=== PATIENT | male | born 1935 | race Caucasian/White ===

== ENCOUNTER 2017-03-28 14:19 | Inpatient (IN) | payer MEDICARE, BC, MEDICAID ==
[2017-03-28 15:20] LABS: Hematocrit 31 % (42-52); Hemoglobin 10.1 g/dl (14.0-18.0); Mean Corpuscular HGB Conc 33 g/dl (31-36); Mean Corpuscular Hemoglobin 28 pg (27-31); Mean Corpuscular Volume 85 fL (80-94); Mean Platelet Volume 7 um3 (7.4-10.4); Red Blood Count 3.64 10^6/ul (4.0-5.4); Red Cell Distribution Width 17 % (10.5-15); White Blood Count 11.6 10^3/ul (3.5-10.8)
--- NOTE | 2017-03-28 15:32 | RAD ---
INDICATION: Weakness. COMPARISON: There are no prior studies available for comparison. TECHNIQUE: A portable view of the chest was obtained. FINDINGS: Cardiac and mediastinal contours appear to be within normal limits. There is a dual-chamber transvenous pacemaker present. The lungs are clear. No pleural effusion is seen. IMPRESSION: NO EVIDENCE FOR ACUTE FINDING.
[2017-03-28 15:36] LABS: BUN/Creatinine Ratio 41.4 (8-20); Calcium 9.6 mg/dL (8.6-10.3); EGFR African American 38.1 (>60); EGFR Non-African American 29.6 (>60); Globulin 4.9 g/dL (2-4); Potassium 5.4 mmol/L (3.5-5.0); Total Bilirubin 0.4 mg/dL (0.2-1.0); Total Protein 7.9 g/dL (6.4-8.9)
[2017-03-28 15:38] LABS: Troponin I 0.02 ng/mL (<0.04)
[2017-03-28] MEDS ORDERED: NS 0.9% 1000 ML* 1,000 ML IV ONE (15:42)
[2017-03-28 16:22] LABS: Urine Bacteria Absent (Absent); Urine Bilirubin Negative (Negative); Urine Glucose Negative (Negative); Urine Nitrite Negative (Negative)
[2017-03-28] MEDS ORDERED: Ciprofloxacin 400MG IVPREMIX(* 400 MG/200 ML BAG IVPB ONE (17:01)
[2017-03-28] MEDS ORDERED: Bisacodyl SUPP* 10 MG SUPP PR PRN (18:02)
[2017-03-28] MEDS ORDERED: Acetaminophen TAB* 325 MG PO PRN (18:02)
[2017-03-28] MEDS ORDERED: Nystatin CREAM* 30 GM TOPICAL PRN (18:02)
[2017-03-28] MEDS ORDERED: Dextrose 50% Syringe 50 ML* 25 GM/50 ML SYRINGE IV PUSH PRN (18:06)
[2017-03-28] MEDS ORDERED: NS 0.9% 1000 ML* 1,000 ML IV SCH (18:15)
[2017-03-28] MEDS ORDERED: Vancomycin per Pharmacy* NOTE FOLLOW UP PRN (18:31)
[2017-03-28] MEDS ORDERED: Vancomycin(*) 1,250 MG in NS 0.9% 250 ML* 250 ML IVPB ONE ×2 (18:45→22:15)
[2017-03-28] MEDS ORDERED: cefTRIAXone VIAL(*) 1,000 MG in NS 0.9% 50 ML* 50 ML IVPB SCH (19:30)
[2017-03-28] MEDS: Gabapentin CAP(*) 100 MG PO SCH (21:08)
[2017-03-28] MEDS: Heparin VIAL(*) 5000 UNITS/ML VIAL (FIVE THOUSAND) SUBCUT SCH (21:10)
[2017-03-28] MEDS: Carvedilol TAB* 25 MG PO SCH (21:10)
[2017-03-28] MEDS: Insulin LISPRO* 1 UNITS UNIT SUBCUT SCH (21:10)
[2017-03-28] MEDS: cefTRIAXone VIAL(*) 1,000 MG in NS 0.9% 50 ML* 50 ML IVPB SCH (22:11)
--- NOTE | 2017-03-28 23:43 | HP ---
ATTENDING PHYSICIAN ADDENDUM NOW INCLUDED ON THIS REPORT MEDICINE HISTORY AND PHYSICAL: DATE OF ADMISSION: 03/28/17 ATTENDING PHYSICIAN: Chata Perez MD * (dictated by Lobito Dawson NP). PRIMARY CARE PHYSICIAN: Romeo Shelton MD. CHIEF COMPLAINT: Back pain. HISTORY OF PRESENT ILLNESS: Mr. Mead is an 81-year-old gentleman with an extensive past medical history who reports waking up with back pain this morning that continued to worsen in severity and the patient arrived at [facility] for his scheduled hyperbaric oxygen therapy treatment. The patient has a history significant for peripheral vascular disease, osteomyelitis of the bilateral heels, and multiple pressure ulcers. Due to his pain and presentation, the patient was unable to have his treatment today or have his dressings changed by the wound clinic and he was sent to the ER for further evaluation. When I initially interviewed the patient, he was very sleepy, but did arouse with stimulation and repeated questions. The patient is a poor historian and was unable to really directly answer many of my questions. He does state that his back pain started this morning and denies any history of back pain like this. He did not receive any pain medications here in the ER, but states that his pain is now better. He denies any recent illness, fever, chills, chest pain , shortness of breath, abdominal pain, nausea, or vomiting. He denies any cramping or changes in appetite. He reports having a history of neuropathy, but denies any new changes or complaints and denies any increased drainage or pain at his wound sites. In the ER, the patient's Ruiz catheter was noted by the nursing staff to be full of sediment. His catheter had noted purulent drainage once removed. A new Ruiz catheter was placed by our ER staff and his urine sample that was reported to be foul smelling and cloudy was sent down for culture. Per the nursing notes, the patient also was observed having periods of apnea while sleeping. He does not have any known diagnosis of sleep apnea. In discussion with the patient's , the patient reports that he has been increasingly lethargic over the past couple of days and she was concerned for his safety when sitting out of bed in the wheelchair by himself. The patient's white blood cell count is mildly elevated at 11.6 and he does have a notable rise in his creatinine from his baseline which appears to be between 1.03 and 1.3. PAST MEDICAL HISTORY: Includes: 1. History of osteomyelitis in the left and right heels. 2. Pressure ulcers to the left and right heels. 3. Pressure ulcers to the left and right calves. 4. History of atherosclerotic heart disease. 5. Type 2 diabetes. 6. Heart failure. 7. Hypertension. 8. Peripheral vascular disease. 9. Polyneuropathy. 10. Paroxysmal atrial fibrillation. 11. BPH. 12. Anemia. PAST SURGICAL HISTORY: Includes: 1. Pacemaker and ICD insertion. 2. History of revascularization of the bilateral lower extremities. 3. Calcaneal debridement. HOME MEDICATIONS: 1. Amiodarone 200 mg daily. 2. Ibuprofen 200 mg q.4 hours p.r.n. 3. Arginaid nutritional supplement 1 pack b.i.d. 4. Aspirin 81 mg daily. 5. Dulcolax suppository 10 mg [place] daily p.r.n. 6. Calcium 500 mg daily. 7. Carvedilol 25 mg b.i.d. 8. Multivitamin 1 chew daily. 9. Fleet enema 1 enema per rectum q.a.m. p.r.n. 10. Probiotic 1 capsule daily. 11. Gabapentin 200 mg b.i.d. 12. Isosorbide mononitrate 60 mg daily. 13. Furosemide 40 mg daily. 14. NovoLog sliding scale with meals. 15. Magnesium oxide 400 mg daily. 16. Milk of magnesia 30 mL at bedtime p.r.n. 17. Lantus 36 units subcu daily. 18. Nystatin 1 application topical b.i.d. p.r.n. 19. Spironolactone 25 mg daily. 20. Acetaminophen 650 mg q.6 hours p.r.n. 21. Cholecalciferol 1000 units q.p.m. and 2000 units q.a.m. 22. Zinc 50 mg every other day. ALLERGIES: No known allergies. FAMILY HISTORY: Unobtainable at this time. The patient is unable to contribute. SOCIAL HISTORY: The patient reports a former tobacco and alcohol history, but denies current use. He denies any history or current use of illicit drugs. He does not work. He is retired. He lives at [facility]. His , Carmen, is his surrogate decision maker. He also has 3 children, Ramos, Nina, and Cleveland. REVIEW OF SYSTEMS: A 12-point review of systems was attempted. All pertinent positives and negatives I was able to obtain, are included in the HPI. PHYSICAL EXAMINATION GENERAL: Mr. Mead is an elderly male patient who is lying in the bed. He is initially drowsy, but is awakened with repeated verbal and tactile stimuli. VITAL SIGNS: Temperature 98.9, heart rate 76, respiratory rate 20, blood pressure 120/47, and O2 saturation is 99% on 2 L O2. HEENT: Head is atraumatic, normocephalic. Face is symmetrical. Pupils are equal, round, reactive to light. Sclerae are anicteric. Oral mucosa appears moist. There is no oropharyngeal erythema. NECK: Supple. No lymphadenopathy appreciated. RESPIRATORY: Lungs are clear to auscultation. No accessory muscle use noted. CARDIAC: S1, S2 heart sounds. Regular rate and rhythm. No murmurs, rubs, or gallops. ABDOMEN: Soft, nontender, nondistended. Bowel sounds present times all 4 quadrants. There is mild CVA tenderness bilaterally. MUSCULOSKELETAL: The patient appears to have full range of motion. SKIN: There are stage 2 pressure ulcers to the patient's sacrum and areas of excoriation. The patient also has multiple areas of open skin to the scrotum and groin area as well as to the tip of his penis. There are chronic wounds to the bilateral posterior calves and to the bilateral heels. The right posterior lower leg has a large amount of drainage. The left posterior leg also has a large amount of drainage. There are 2 heel wounds with drainage noted from the left foot. NEUROLOGIC: He moves all extremities. Sensation is intact to light touch to lower extremities, although it is somewhat decreased. PSYCH: The patient is alert and oriented x3. Once aroused, he does have slow responses, but they are appropriate. LABORATORY DATA AND DIAGNOSTIC STUDIES: CBC: WBC 11.6, hemoglobin 10.1, hematocrit 31, platelet count 232. INR 1.33. CMP: Sodium 129, potassium 5.4, chloride 100, carbon dioxide 21, BUN 89, creatinine 2.15, glucose 189, lactic acid 1.6, calcium 9.6. AST 18, ALT 16, alk phos 47. Troponin 0.02. Albumin 3.0. Urinalysis is significant for 2+ protein, 3+ blood, 3+ leukocyte esterase, 3+ rbc's. Chest x-ray shows no evidence for acute finding. Old medical records were reviewed. ASSESSMENT AND PLAN: Mr. Mead is an 81-year-old male who presents today with concern for sepsis as evidenced by altered mental status as well as urinary tract infection with potential pyelonephritis and acute kidney injury. We will admit him under inpatient status to the medicine floor. The plan is as follows: 1. Sepsis: The patient meets sepsis criteria currently with a qSOFA score of 1 or altered mentation and meets for sepsis by systemic inflammatory response syndrome criteria with elevated respiratory rate. The suspect thus far is urine as the patient did present with back pain that is concerning for developing pyelonephritis. Additionally, he does have a mildly elevated WBCs as well as increased creatinine indicating acute kidney injury and a UA that is concerning for leukocyte esterase and wbc's as well as blood. With the patient' s chronic Ruiz, he is at risk for urinary tract infections. The patient does have a urine culture on our record from a couple of weeks ago that shows MRSA growth in the urine. We will continue the patient on ceftriaxone and vancomycin and cover potential MRSA. Await urine cultures. We will also hydrate the patient and recheck labs in the morning to follow the WBC count as well as his renal function. The patient's Ruiz catheter has already been exchanged. 2. Acute on chronic kidney injury: The patient does seem to have some evidence of mild kidney disease or chronicity; however, his creatinine is about his usual baseline as seen in previous records. It is likely secondary to acute infection and perhaps some dehydration. We will give him IV fluids overnight and recheck his creatinine in the morning and we will continue to follow. We will hold the patient's home Lasix with spironolactone at this time. 3. Electrolyte abnormality: The patient does demonstrate some hyponatremia and hyperkalemia that is mild in nature. We will follow and continue to monitor to make sure that this is not trending in the wrong direction. The patient will receive fluids which I suspect will help the hyponatremia. This is likely secondary to hypovolemia. In terms of potassium, this may be secondary to the patient's acute on chronic renal failure, so we will continue to follow this as well. 4. Concern for apnea: The patient is able to maintain appropriate O2 sats on room air, but does demonstrate apnea and desaturation with sleep on mild amount of oxygen. We will obtain overnight pulse oximetry. The patient may benefit from an outpatient sleep study and most likely will benefit from a CPAP. 5. Chronic wounds and pressure ulcers: Wound consult has been placed. The patient was actually evaluated by the wound care team in the ER and wound orders have already been placed. We will treat these dressings per wound care consult. We will also order an air mattress and promote turning, positioning, and elevating the heels in order to prevent any further breakdown. 6. Atherosclerotic heart disease: Continue home aspirin, beta sarahi. Continue home Imdur. 7. History of paroxysmal atrial fibrillation: Continue amiodarone and carvedilol. 8. History of hypertension: Continue carvedilol. We will hold furosemide and spironolactone. 9. Heart failure: We will hold the patient's diuretics at this time with acute kidney injury and resume when medically appropriate. We will continue to trace him on I's and O's and daily weight to monitor his fluid status. Continue carvedilol. 10. Diabetes: The patient will be continued on his home Lantus dose and we will order lispro sliding scale insulin coverage for meals. 11. History of polyneuropathy: Continue gabapentin. 12. FEN: The patient will be ordered IV fluids. He will be maintained on a consistent carbohydrate diet. 13. DVT prophylaxis: The patient is at highest risk. We will give him subcu heparin as SCDs are contraindicated with his peripheral vascular disease, BOBBY italiae also contraindicated. 14. Code status: The patient is a DNR and the MOLST has been completed and signed by the patient. 15. Disposition: Admit to Medicine. Discharge to [facility] when medically stable. TIME SPENT: Time spent on this admission was approximately 65 minutes, more than half the time was spent [id number] with the patient obtaining history and physical, performing physical examination, and reviewing the plan of care. Plan of care was also reviewed with my attending, Dr. Chata Perez, who is in agreement. LOBITO DAWSON NP DATE OF ADMISSION: 03/28/17 ADDENDUM: Mr. Mead is an 81-year-old male with a history of bilateral chronic leg wounds, heart disease, cellulitis of the left heel, diabetes, CHF, hypertension , AND paroxysmal atrial fibrillation, who [facility] of wound infection. He actually presented in the ED with partially clogged Ruiz catheter. His urinalysis is markedly abnormal. He is going to be placed on broad-spectrum antibiotics. Wound Care is going to be following up in consultation. For further details of the patient's presentation and plan, please see history and physical dictated by Lobito Dawson NP, on 03/28/17 with which I agree. CHATA PEREZ MD CC: Romeo Shelton MD * [id number]/[facility] #: [id number]/CPS #: [id number] YAMIL
--- NOTE | 2017-03-29 00:25 | HP ---
HISTORY AND PHYSICAL:* DATE OF ADMISSION: 03/28/17 ADDENDUM: Mr. Mead is an 81-year-old male with a history of bilateral chronic leg wounds, heart disease, cellulitis of the left heel, diabetes, CHF, hypertension, AND paroxysmal atrial fibrillation, who [facility] of wound infection. He actually presented in the ED with partially clogged Ruiz catheter. His urinalysis is markedly abnormal. He is going to be placed on broad-spectrum antibiotics. Wound Care is going to be following up in consultation. For further details of the patient's presentation and plan, please see history and physical dictated by Jane Smith NP, on 03/28/17 with which I agree. [id number]/[facility] #: [id number] YAMIL
[2017-03-29] MEDS: Heparin VIAL(*) 5000 UNITS/ML VIAL (FIVE THOUSAND) SUBCUT SCH ×3 (05:33→21:49)
[2017-03-29 05:57] LABS: Hematocrit 29 % (42-52); Hemoglobin 9.5 g/dl (14.0-18.0); Mean Corpuscular HGB Conc 33 g/dl (31-36); Mean Corpuscular Hemoglobin 28 pg (27-31); Mean Corpuscular Volume 85 fL (80-94); Mean Platelet Volume 8 um3 (7.4-10.4); Red Blood Count 3.34 10^6/ul (4.0-5.4); Red Cell Distribution Width 17 % (10.5-15); White Blood Count 8.6 10^3/ul (3.5-10.8)
[2017-03-29 06:09] LABS: BUN/Creatinine Ratio 46.1 (8-20); EGFR African American 51.7 (>60); EGFR Non-African American 40.2 (>60); Magnesium 2.4 mg/dL (1.9-2.7); Potassium 4.8 mmol/L (3.5-5.0)
[2017-03-29] MEDS: Insulin GLARGINE(*) 1 UNITS UNIT SUBCUT SCH (10:03)
[2017-03-29] MEDS: Insulin LISPRO* 1 UNITS UNIT SUBCUT SCH ×3 (10:04→17:49)
[2017-03-29] MEDS: Cholecalciferol TAB* 1000 UNITS PO SCH (10:05)
[2017-03-29] MEDS: Lactobacillus Acidophilu (GG)* 1 CAP CAP PO SCH (10:05)
[2017-03-29] MEDS: Gabapentin CAP(*) 100 MG PO SCH ×2 (10:05→21:47)
[2017-03-29] MEDS: Aspirin EC Low Dose* 81 MG TAB.EC PO SCH (10:06)
[2017-03-29] MEDS: Amiodarone TAB* 200 MG PO SCH (10:06)
[2017-03-29] MEDS: Calcium Carbonate TAB* 1250 MG (CALCIUM 500 MG) PO SCH (10:06)
[2017-03-29] MEDS: Vancomycin(*) 750 MG in NS 0.9% 250 ML* 250 ML IVPB SCH ×2 (10:06→23:26)
[2017-03-29] MEDS: Isosorbide Mononitrate ER TAB* 60 MG PO SCH (10:06)
[2017-03-29] MEDS: Carvedilol TAB* 25 MG PO SCH ×2 (10:06→21:47)
--- NOTE | 2017-03-29 11:02 | PN ---
Subjective Date of Service: 03/29/17 Interval History: Mr. Mead is an 81 yo male patient who presented to the ED with transient back pain and concern for a developing pyelonephritis. He has a chronic indwelling manzo catheter that was cloudy with purulent urine and chronic diabetic ulcers to BLE. Mr. Mead is more alert and talkative this morning. When asked about the history of his wounds, he states that it was caused by "sugar." He also reports that he was walking around until "about 6 weeks ago when the doctor told me to stop walking." Patient unable to contribute any more information than this. He denies back or abd pain, n/v, CP, SOB, fever/chills. Family History: Unchanged from Admission Social History: Unchanged from Admission Past Medical History: Unchanged from Admission Objective Active Medications: Acetaminophen (Tylenol Tab*) 650 mg PO Q6H PRN PRN Reason: PAIN Amiodarone HCl (Cordarone Tab*) 200 mg PO DAILY [facility] Last Admin: 03/29/17 10:06 Dose: 200 mg Aspirin (Aspirin Ec Low Dose*) 81 mg PO DAILY [facility] Last Admin: 03/29/17 10:06 Dose: 81 mg Bisacodyl (Dulcolax Supp*) 10 mg [place] DAILY PRN PRN Reason: CONSTIPATION Calcium Carbonate (Calcium Carbonate Tab*) 1,250 mg PO DAILY [facility] Last Admin: 03/29/17 10:06 Dose: 1,250 mg Carvedilol (Coreg Tab*) 25 mg PO BID [facility] Last Admin: 03/29/17 10:06 Dose: 25 mg Cholecalciferol (Vitamin D Tab*) 1,000 units PO QPM [facility] Cholecalciferol (Vitamin D Tab*) 2,000 units PO DAILY [facility] Last Admin: 03/29/17 10:05 Dose: 2,000 units Dextrose (D50w Syringe 50 Ml*) 12.5 gm IV PUSH .FOR FS < 60 - SS PRN PRN Reason: FS < 60 Gabapentin (Neurontin Cap(*)) 200 mg PO BID [facility] Last Admin: 03/29/17 10:05 Dose: 200 mg Heparin Sodium (Porcine) (Heparin Vial(*)) 5,000 units SUBCUT Q8HR [facility] Last Admin: 03/29/17 05:33 Dose: 5,000 units Ceftriaxone Sodium 1,000 mg/ (Sodium Chloride) 50 mls @ 200 mls/hr IVPB 2200 [facility] Last Admin: 03/28/17 22:11 Dose: 200 mls/hr Vancomycin HCl 750 mg/ Sodium (Chloride) 250 mls @ 166.667 mls/hr IVPB Q12H [facility] Last Admin: 03/29/17 10:06 Dose: 166.667 mls/hr Sodium Chloride (Ns 0.9% 1000 Ml*) 1,000 mls @ 100 mls/hr IV PER RATE [facility] Stop: 03/29/17 21:14 Insulin Glargine (Lantus(*)) 36 units SUBCUT DAILY [facility] Last Admin: 03/29/17 10:03 Dose: 36 units Insulin Human Lispro (Humalog*) 0 units SUBCUT AC [facility] PRN Reason: Protocol Last Admin: 03/29/17 10:04 Dose: 4 units Isosorbide Mononitrate (Imdur Er Tab*) 60 mg PO DAILY [facility] Last Admin: 03/29/17 10:06 Dose: 60 mg Lactobacillus Rhamnosus (Culturelle*) 1 cap PO DAILY [facility] Last Admin: 03/29/17 10:05 Dose: 1 cap Nystatin (Nystatin Cream*) 1 applic TOPICAL BID PRN PRN Reason: RASH Pharmacy Consult (Vancomycin Per Pharmacy*) 1 note FOLLOW UP . PRN PRN Reason: PER PROTOCOL Pharmacy Profile Note (Vancomycin Trough Check) 1 note FOLLOW UP 1000 ONE Stop: 03/30/17 10:01 Vital Signs 03/28/17 03/28/17 03/28/17 17:30 18:00 18:15 Temperature 98.9 F Pulse Rate 75 78 76 Respiratory 19 21 20 Rate Blood Pressure 120/47 120/60 120/60 (mmHg) O2 Sat by Pulse 97 99 Oximetry 03/28/17 03/28/17 03/28/17 18:44 18:48 20:00 Temperature 97.4 F 97.4 F Pulse Rate 79 79 Respiratory 18 18 18 Rate Blood Pressure 136/68 136/68 (mmHg) O2 Sat by Pulse 100 100 97 Oximetry 03/28/17 03/28/17 03/28/17 21:08 22:00 23:08 Temperature Pulse Rate Respiratory 18 16 Rate Blood Pressure (mmHg) O2 Sat by Pulse 97 Oximetry 03/28/17 03/29/17 03/29/17 23:27 03:19 09:08 Temperature 97.5 F Pulse Rate 74 76 75 Respiratory 18 18 16 Rate Blood Pressure 119/59 133/61 126/72 (mmHg) O2 Sat by Pulse 99 99 99 Oximetry 03/29/17 10:05 Temperature Pulse Rate Respiratory 14 Rate Blood Pressure (mmHg) O2 Sat by Pulse Oximetry Oxygen Devices in Use Now: None Appearance: Older male patient, sitting up in bed, NAD Eyes: PERRLA Ears/Nose/Mouth/Throat: Mucous Membranes Moist Neck: NL Appearance and Movements; NL JVP Respiratory: Symmetrical Chest Expansion and Respiratory Effort, Clear to Auscultation Cardiovascular: NL Sounds; No Murmurs; No JVD, RRR Abdominal: NL Sounds; No Tenderness; No Distention Skin: - - Patient with open areas to buttocks, groin, scrotum, and penis. Chronic pressure ulcers to bilateral posterior legs and feet. Neurological: - - Alert, oriented to self, place. Poor insight and historian. Lines/Tubes/Other Access: Clean, Dry and Intact Peripheral IV Nutrition: Taking PO's Result Diagrams: 03/29/17 05:09 03/29/17 05:09 Additional Lab and Data: Lab Results 03/28/17 03/28/17 Range/Units 15:13 15:13 WBC 11.6 H (3.5-10.8) 10^3/ul RBC 3.64 L (4.0-5.4) 10^6/ul Hgb 10.1 L (14.0-18.0) g/dl Hct 31 L (42-52) % MCV 85 (80-94) fL MCH 28 (27-31) pg MCHC 33 (31-36) g/dl RDW 17 H (10.5-15) % Plt Count 232 (150-450) 10^3/ul MPV 7 L (7.4-10.4) um3 Neut % (Auto) 77.9 (38-83) % Lymph % (Auto) 7.5 L (25-47) % Evans % (Auto) 9.8 H (1-9) % Eos % (Auto) 4.1 (0-6) % Baso % (Auto) 0.7 (0-2) % Absolute Neuts (auto) 9.0 H (1.5-7.7) 10^3/ul Absolute Lymphs (auto) 0.9 L (1.0-4.8) 10^3/ul Absolute Monos (auto) 1.1 H (0-0.8) 10^3/ul Absolute Eos (auto) 0.5 (0-0.6) 10^3/ul Absolute Basos (auto) 0.1 (0-0.2) 10^3/ul Absolute Nucleated RBC 0 10^3/ul Nucleated RBC % 0 INR (Anticoag Therapy) 1.33 H (0.89-1.11) Assess/Plan/Problems-Billing Assessment: Mr. Mead is an 81 yo male patient with a PMH of chronic pressure ulcers, osteomyelitis, atherosclerotic heart dz, IDDM with polyneuropathy, PVD, PAF, HLD , HF, BPH and anemia who presented to the ED on 03/28/17 with concern for sepsis, leukocytosis and transient back pain that may be secondary to UTI with pyelonephritis, as well as NASRA. - Patient Problems (1) Sepsis Comment: Improved, leukocytosis resolving. Patient meets sepsis criteria with a qSOFA score of 1 for altered mentation and SIRS criteria of hypoxia and increased RR. Suspect urinary source. Previous urine culture with MRSA growth. Continue ceftriaxone and vancomycin until urine culture results. 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 Exchanged on admission (03/28/17) Previous urine cx with MRSA growth. Continue ceftriaxone and vancomycin, pending urine cx results. (3) Acute kidney injury Code(s): N17.9 - ACUTE KIDNEY FAILURE, UNSPECIFIED Comment: Improving. Suspect secondary to dehydration and acute infection. Will give one additional liter of IVF and recheck BMP tomorrow. 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 (4) Electrolyte abnormality Code(s): E87.8 - OTH DISORDERS OF ELECTROLYTE AND FLUID BALANCE, NEC Comment: Resolved. Hyponatremia, suspect secondary to hypovolemia (possibly from infection and overdiuresis). Hyperkalemia, suspect secondary to acute on chronic renal failure. (5) Multiple wounds Code(s): T07 - UNSPECIFIED MULTIPLE INJURIES Comment: Chronic lower extremity wounds Appreciate wound care consult Dressing changes per wound care Resume hyperbaric chamber treatment upon discharge. Continue skin precautions, air mattress. (6) Atherosclerotic heart disease Code(s): I25.10 - ATHSCL HEART DISEASE OF [place] CORONARY ARTERY W/O ANG PCTRS Comment: Continue ASA, carvedilol, isosorbide mononitrate. (7) IDDM (insulin dependent diabetes mellitus) Code(s): E11.9 - TYPE 2 DIABETES MELLITUS WITHOUT COMPLICATIONS; Z79.4 - PATROL INSPECTOR (CURRENT) USE OF INSULIN Comment: Elevated BG - check HgbA1c Continue home Lantus Lispro SSI coverage (8) HTN (hypertension) Code(s): I10 - ESSENTIAL (PRIMARY) HYPERTENSION Comment: Normotensive Continue home carvedilol with hold parameters. Hold furosemide and spironolactone. (9) History of heart failure Code(s): Z86.79 - PERSONAL HISTORY OF OTHER DISEASES OF THE CIRCULATORY SYSTEM Comment: Stable. Will hold furosemide and spironolactone with NASRA. Daily weights and I/O (10) Polyneuropathy Code(s): G62.9 - POLYNEUROPATHY, UNSPECIFIED Comment: Continue gabapentin. (11) PAF (paroxysmal atrial fibrillation) Code(s): I48.0 - PAROXYSMAL ATRIAL FIBRILLATION Comment: Continue amiodarone and carvedilol. (12) BPH (benign prostatic hyperplasia) Code(s): N40.0 - BENIGN PROSTATIC HYPERPLASIA WITHOUT LOWER URINRY TRACT SYMP Comment: With urinary retention Catheter changed 03/28/17 (13) DVT prophylaxis Code(s): HOZ7815 - Comment: SQ heparin Status and Disposition: Inpatient admission. Anticipate potential d/c to home tomorrow.
[2017-03-29] MEDS ORDERED: NS 0.9% 1000 ML* 1,000 ML IV SCH (11:15)
[2017-03-29] MEDS ORDERED: Cholecalciferol TAB* 1000 UNITS PO SCH (18:00)
[2017-03-29] MEDS: cefTRIAXone VIAL(*) 1,000 MG in NS 0.9% 50 ML* 50 ML IVPB SCH (21:49)
[2017-03-30] MEDS: Heparin VIAL(*) 5000 UNITS/ML VIAL (FIVE THOUSAND) SUBCUT SCH (05:28)
[2017-03-30 06:00] LABS: BUN/Creatinine Ratio 40.3 (8-20); Calcium 8.8 mg/dL (8.6-10.3); EGFR African American 75.5 (>60); EGFR Non-African American 58.7 (>60)
[2017-03-30] MEDS: Insulin LISPRO* 1 UNITS UNIT SUBCUT SCH ×2 (08:55→12:37)
[2017-03-30] MEDS: Amiodarone TAB* 200 MG PO SCH (08:57)
[2017-03-30] MEDS: Aspirin EC Low Dose* 81 MG TAB.EC PO SCH (08:57)
[2017-03-30] MEDS: Lactobacillus Acidophilu (GG)* 1 CAP CAP PO SCH (08:57)
[2017-03-30] MEDS: Gabapentin CAP(*) 100 MG PO SCH (08:57)
[2017-03-30] MEDS: Cholecalciferol TAB* 1000 UNITS PO SCH (08:57)
[2017-03-30] MEDS: Calcium Carbonate TAB* 1250 MG (CALCIUM 500 MG) PO SCH (08:57)
[2017-03-30] MEDS: Isosorbide Mononitrate ER TAB* 60 MG PO SCH (08:58)
[2017-03-30 08:59] VITALS: BP 124/61
[2017-03-30] MEDS: Carvedilol TAB* 25 MG PO SCH (08:59)
[2017-03-30] MEDS: Insulin GLARGINE(*) 1 UNITS UNIT SUBCUT SCH (09:48)
[2017-03-30] MEDS ORDERED: Vancomycin Trough Check NOTE FOLLOW UP ONE (10:00)
--- NOTE | 2017-03-30 11:48 | PN ---
Subjective Date of Service: 03/30/17 Interval History: Patient seen and examined at bedside. Pt states that he feels well today and is anxious to get back to [place] [facility]. Denies fever, chills, shortness of breath, chest discomfort, N/V/D. Family History: Unchanged from Admission Social History: Unchanged from Admission Past Medical History: Unchanged from Admission Objective Active Medications: Acetaminophen (Tylenol Tab*) 650 mg PO Q6H PRN Reason: PAIN Amiodarone HCl (Cordarone Tab*) 200 mg PO DAILY ISAIAS Aspirin (Aspirin Ec Low Dose*) 81 mg PO DAILY ISAIAS Bisacodyl (Dulcolax Supp*) 10 mg FL DAILY PRN Reason: CONSTIPATION Calcium Carbonate (Calcium Carbonate Tab*) 1,250 mg PO DAILY ISAIAS Carvedilol (Coreg Tab*) 25 mg PO BID ISAIAS Cholecalciferol (Vitamin D Tab*) 1,000 units PO QPM ISAIAS Cholecalciferol (Vitamin D Tab*) 2,000 units PO DAILY [facility] Dextrose (D50w Syringe 50 Ml*) 12.5 gm IV PUSH .FOR FS < 60 - SS PRN Reason: FS < 60 Gabapentin (Neurontin Cap(*)) 200 mg PO BID ISAIAS Heparin Sodium (Porcine) (Heparin Vial(*)) 5,000 units SUBCUT Q8HR ISAIAS Ceftriaxone Sodium 1,000 mg/ (Sodium Chloride) 50 mls @ 200 mls/hr IVPB 2200 ISAIAS Vancomycin HCl 750 mg/ Sodium (Chloride) 250 mls @ 166.667 mls/hr IVPB Q12H ISAIAS Insulin Glargine (Lantus(*)) 36 units SUBCUT DAILY ISAIAS Insulin Human Lispro (Humalog*) 0 units SUBCUT AC ISAIAS Reason: Protocol Isosorbide Mononitrate (Imdur Er Tab*) 60 mg PO DAILY ISAIAS Lactobacillus Rhamnosus (Culturelle*) 1 cap PO DAILY ISAIAS Nystatin (Nystatin Cream*) 1 applic TOPICAL BID PRN Reason: RASH Pharmacy Consult (Vancomycin Per Pharmacy*) 1 note FOLLOW UP . PRN Reason: PER PROTOCOL Vital Signs 03/29/17 03/29/17 03/29/17 12:05 15:57 21:47 Temperature 97.7 F Pulse Rate 84 Respiratory 14 18 Rate Blood Pressure 129/60 (mmHg) O2 Sat by Pulse 97 Oximetry 03/29/17 03/29/17 03/29/17 23:44 23:45 23:51 Temperature Pulse Rate 78 Respiratory 16 16 18 Rate Blood Pressure 117/57 (mmHg) O2 Sat by Pulse 100 Oximetry 03/30/17 03/30/17 03/30/17 00:10 04:00 07:37 Temperature 98.0 F Pulse Rate 78 76 Respiratory 16 16 16 Rate Blood Pressure 122/51 124/61 (mmHg) O2 Sat by Pulse 99 97 Oximetry 03/30/17 03/30/17 03/30/17 08:00 08:57 10:57 Temperature Pulse Rate Respiratory 16 16 16 Rate Blood Pressure (mmHg) O2 Sat by Pulse 97 Oximetry Oxygen Devices in Use Now: None Appearance: NAD, laying in bed Eyes: No Scleral Icterus Ears/Nose/Mouth/Throat: Mucous Membranes Moist Respiratory: Symmetrical Chest Expansion and Respiratory Effort, Clear to Auscultation Cardiovascular: NL Sounds; No Murmurs; No JVD, - - Heart rate irregular Abdominal: NL Sounds; No Tenderness; No Distention Extremities: No Edema Skin: - - Dressing to bilateral LE, intact Neurological: Alert and Oriented x 3, NL Muscle Strength and Tone Nutrition: Taking PO's Result Diagrams: 03/29/17 05:09 03/30/17 05:37 Additional Lab and Data: Lab Results Assess/Plan/Problems-Billing Assessment: Mr. Mead is an 81 yo male patient with a PMH of chronic pressure ulcers, osteomyelitis, atherosclerotic heart dz, IDDM with polyneuropathy, PVD, PAF, HLD , HF, BPH and anemia who presented to the ED on 03/28/17 with concern for sepsis, leukocytosis and transient back pain that may be secondary to UTI with pyelonephritis, as well as NASRA. - Patient Problems (1) Sepsis Comment: - Resolved - Leukocytosis resolved, Afebrile - qSOFA resolved and SIRS criteria resolved - SOFA score on admission 4 (low MAP, elevated creatinine and AMS), meeting SIRS criteria with leukocytosis and tachypnea on admission - Suspect urinary source. - Previous urine culture with MRSA growth. 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 - Exchanged on admission (03/28/17) - Urine cx with MRSA - Switch to Bactrim DS for 9 more days (3) Acute kidney injury Code(s): N17.9 - ACUTE KIDNEY FAILURE, UNSPECIFIED SNOMED Code(s): 27863699 Comment: - Improving. - Suspect secondary to dehydration and acute infection. 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 - Monitor BMP outpatient (4) Electrolyte abnormality Code(s): E87.8 - OTH DISORDERS OF ELECTROLYTE AND FLUID BALANCE, NEC SNOMED Code(s): 913696455 Comment: - Resolved. - Hyponatremia, suspect secondary to hypovolemia (possibly from infection and overdiuresis). - Hyperkalemia, suspect secondary to acute on chronic renal failure. (5) Multiple wounds Code(s): T07 - UNSPECIFIED MULTIPLE INJURIES SNOMED Code(s): 085454788 Comment: - Chronic lower extremity wounds - Appreciate wound care consult - Dressing changes per wound care - Continue skin precautions, air mattress. - Resume hyperbaric chamber treatment upon discharge. (6) Atherosclerotic heart disease Code(s): I25.10 - ATHSCL HEART DISEASE OF [place] CORONARY ARTERY W/O ANG PCTRS SNOMED Code(s): 580948391 Comment: - Continue ASA, carvedilol, isosorbide mononitrate. (7) IDDM (insulin dependent diabetes mellitus) Code(s): E11.9 - TYPE 2 DIABETES MELLITUS WITHOUT COMPLICATIONS; Z79.4 - HALFWAY (CURRENT) USE OF INSULIN SNOMED Code(s): 65691187 Comment: - HgbA1c - 6.4 - Continue home Lantus and SSI coverage (8) HTN (hypertension) Code(s): I10 - ESSENTIAL (PRIMARY) HYPERTENSION SNOMED Code(s): 55518176 Comment: - Normotensive - Continue home carvedilol with hold parameters. - Hold furosemide and spironolactone. (9) History of heart failure Code(s): Z86.79 - PERSONAL HISTORY OF OTHER DISEASES OF THE CIRCULATORY SYSTEM SNOMED Code(s): 074161336 Comment: - Stable. - Will hold furosemide and spironolactone with NASRA. - Daily weights and I/O (10) BPH (benign prostatic hyperplasia) Code(s): N40.0 - BENIGN PROSTATIC HYPERPLASIA WITHOUT LOWER URINRY TRACT SYMP SNOMED Code(s): 617371316 Comment: - With urinary retention - Catheter changed 03/28/17 (11) PAF (paroxysmal atrial fibrillation) Code(s): I48.0 - PAROXYSMAL ATRIAL FIBRILLATION SNOMED Code(s): 043331009 Comment: - Rate controlled, - Continue amiodarone and carvedilol. (12) Polyneuropathy Code(s): G62.9 - POLYNEUROPATHY, UNSPECIFIED SNOMED Code(s): 97869386 Comment: - Continue gabapentin. (13) DVT prophylaxis Code(s): OME0015 - SNOMED Code(s): 081208427 (14) DNR (do not resuscitate) Status and Disposition: Inpatient admission. Stable for discharge to [facility] today.
[2017-03-30] MEDS: Vancomycin(*) 750 MG in NS 0.9% 250 ML* 250 ML IVPB SCH (12:32)
--- NOTE | 2017-03-30 13:49 | DS ---
DATE OF ADMISSION: 03/28/2017. DATE OF DISCHARGE: 03/30/2017. AGE: 81. ATTENDING PHYSICIAN: Dr. Kya Shields *(dictated by Vidya Del Rosario NP). PRIMARY CARE PHYSICIAN: Dr. Romeo Shelton. PRIMARY DIAGNOSES: 1. Sepsis secondary to MRSA urinary tract infection. 2. Acute on chronic kidney injury. 3. Hyponatremia and hyperkalemia, resolved. 4. Suspected sleep apnea. 5. Chronic wounds. SECONDARY DIAGNOSES: 1. Atherosclerotic heart disease. 2. Paroxysmal atrial fibrillation. 3. Hypertension. 4. Heart failure. 5. Diabetes mellitus. 6. Polyneuropathy. STUDIES WHILE IN THE HOSPITAL: 1. Chest x-ray on 03/28/2017: Radiologist's impression: No evidence for acute findings. 2. Overnight pulse oximetry on 03/28/2017. The longest continuous time with saturation less than 89 was 8 minutes. DISCHARGE MEDICATIONS: New home medications: 1. Bactrim DS 800/160 one tablet oral twice daily for 9 days. Continued home medications: 1. Lantus insulin 36 units subcutaneous daily. 2. Amiodarone 200 mg oral daily. 3. Carvedilol 25 mg oral twice daily. 4. Magnesium 400 mg oral daily. 5. NovoLog insulin subcutaneous sliding scale with meals. 6. Vitamin D 2000 units daily. 7. Vitamin D 1000 units oral every evening. 8. Tucks one topical every 4 hours as needed for pain. 9. Acetaminophen 650 mg oral every 6 hours as needed for pain. 10. Nystatin cream one application topical twice daily as needed for rash. 11. Milk of Magnesia 30 ml oral daily at bedtime as needed for constipation. 12. Imdur ER 60 mg oral daily. 13. Gabapentin 200 mg oral twice daily. 14. Probiotic one capsule oral daily. 15. Fleets enema one rectal daily as needed for constipation. 16. Dulcolax suppository 10 mg rectal daily as needed for constipation. 17. Multivitamin one tablet oral daily. 18. Calcium 500 mg oral daily. 19. Aspirin 81 mg oral daily. 20. Nutritional supplement one packet oral twice daily. 21. Ibuprofen 200 mg oral every 4 hours as needed for discomfort. 22. Zinc 50 mg oral daily. Medications on hold at discharge: 1. Furosemide. 2. Spironolactone. HISTORY OF PRESENT ILLNESS/HOSPITAL COURSE: Mr. Mead is an 81-year-old male with an extensive past medical history who presented to the emergency room with complaints of back pain. The patient has a history significant for peripheral vascular disease, osteomyelitis of bilateral heels, multiple pressure wounds, chronic kidney disease, heart failure with diabetes mellitus who is currently a patient of the [facility], undergoing hyperbaric treatment for his chronic wounds. Due to the patient's pain, he did not receive his treatment and was sent to the emergency room for further evaluation. While in the emergency room, the patient was noted to be sleepy but was arousable. He was found to be a poor historian, reporting that the back pain had started the morning of his presentation. The patient denied any recent illnesses or complaints. While in the emergency room, the patient's urinary catheter drainage was found to have sediment in it. The patient had his catheter exchanged and there was noted to be purulent drainage once that was removed. A new urinary catheter was placed by the ER staff and a urine sample was sent for further analysis. It is also to note that during the patient's time in the emergency room, he was noted to be having periods of apnea while sleeping. The patient was not aware of a previous diagnosis of sleep apnea. The patient had a white blood cell count of 11.6 and a rise in his creatinine from his baseline which appears to be 1.03 to 1.3. Hospitalists were asked to evaluate the patient for admission. While in the hospital, the patient was admitted for sepsis secondary to a urinary tract infection. On presentation, the patient had been meeting SOFA score of 4 with a low MAP, elevated creatinine and altered mental status and was meeting SIRS criteria with leukocytosis and tachypnea. During his stay, his sepsis resolved. He is afebrile. He was initially placed on Ceftriaxone and Vancomycin. The patient's urine culture grew MRSA. He was switched to Bactrim. He should be on that for nine more days to complete a ten day course of antibiotics. His leukocytosis has resolved and his creatinine and BUN have improved close to his baseline. The patient's altered mental status improved. The patient underwent an overnight pulse oximetry, noting that he had a desaturation to less than 89 for eight minutes. The patient was using a CPAP during his stay here. It is suspected that the patient's acute on chronic kidney injury was secondary to dehydration and his acute infection. Again this did improve during his stay. The patient's hyponatremia resolved. It is suspected to be secondary to hypovolemia, possibly from his infection or overdiuresis. The patient was also noted to be hyperkalemic which resolved and it was suspected to be secondary to acute on chronic renal failure. Mr. Mead is stable for discharge back to [facility] today. Vital signs are as follows: Temperature 98.0, heart rate 76, respiratory rate 16, O2 sat 97 percent on room air, blood pressure 124/61. DISCHARGE PLAN: Mr. Mead will be discharged back to [facility] today. He should continue dressing changes and hyperbaric treatments per the Wound Clinic. He will be seen by the Wound Clinic today prior to his return to [facility]. As far as the patient's urinary tract infection, he should be continued on Bactrim for nine more days. For the patient's acute kidney injury , he appears to be almost back to his baseline. I recommend holding his diuretics for a couple more days, as long as he shows no signs of heart failure and recommend rechecking his basic metabolic panel in two to four days and restarting diuretics accordingly. As far as the patient's atherosclerotic heart disease, he should be continued on aspirin, Carvedilol and Imdur. For the patient's diabetes mellitus, his diabetes appears to be controlled. His hemoglobin A1c was 6.4 during his admission. He should be continued on his home Lantus and NovoLog sliding scale. For the patient's hypertension, he has been normotensive during his stay. He should be continued on his home Carvedilol. For the patient's heart failure, again I recommend continuing to hold his Furosemide and Spironolactone until he has a repeat BNP and then restart accordingly and use caution when restarting as the patient appeared to have been over diuresed at admission. He should have daily weights. For the patient's polyneuropathy, he should be continued on Gabapentin. For the patient 's paroxysmal atrial fibrillation, he should be continued on Amiodarone and Carvedilol. For the patient's BPH, he should continue to have his urinary catheter in place. The patient should return to the emergency room for any complaints of chest pain or shortness of breath. ACTIVITY: As tolerated. DIET: He should be on a consistent carbohydrate heart-healthy diet. This is a summarized report of a complex medical history and hospital stay. For further details, please see the entire medical record. Time for this discharge was 50 minutes and 25 minutes were spent [id number] with the patient discussing discharge plans and instructions. CONDITION ON DISCHARGE: Stable. ÁNGEL HOFFMAN CC: [facility]; Dr. Romeo Shelton* [id number]/CPS #: [id number]
--- NOTE | 2017-03-30 18:18 | ED ---
Kay Bill Matthew, scribed for Sixto Rousseau MD on 03/28/17 at 1627 . Back Pain - HPI Summary HPI Summary: An 81 y/o male presents to the ED with lower back pain that lasted for a couple of hours and has since resolved. The pain was rated 10/10 in severity. Associated symptoms include vomiting and diarrhea - since 2 days ago. The patient denies abdominal pain, fever, diaphoresis, chills, urinary symptoms, dizziness, lightheadedness, and chest pain. Hx of UTI and kidney infections. He arrives from the wound clinic, where he received hyperbaric treatment for ulcers on both feet. - History of Current Complaint Chief Complaint: EDBackInjuryPain Stated Complaint: BACK PAIN/UNABLE TO LIFT HEAD Time Seen by Provider: 03/28/17 14:43 Hx Obtained From: Patient Onset/Duration: Lasting Hours, Resolved Onset/Duration: Started Hours Ago, Atraumatic, Resolved Timing: Constant Back Pain Location: Is Discrete @ - lower back Severity Initially: Moderate Severity Currently: None Pain Intensity: 0 Pain Scale Used: 0-10 Numeric Aggravating Symptom(s): Nothing Alleviating Symptom(s): Nothing Associated Signs And Symptoms: Positive: Other - vomiting, diarrhea - Allergies/Home Medications Allergies/Adverse Reactions: Allergies Allergy/AdvReac Type Severity Reaction Status Date / Time No Known Allergies Allergy Verified 03/28/17 15:01 Home Medications: Home Medications Acetaminophen TAB* [Tylenol TAB*] 650 mg PO Q6H PRN 03/28/17 [History Confirmed 03/28/17] Aspirin EC Low Dose* [Ecotrin EC Low Dose 81 MG*] 81 mg PO DAILY 03/28/17 [ History Confirmed 03/28/17] Bisacodyl SUPP* [Dulcolax Supp*] 10 mg MT DAILY PRN 03/28/17 [History Confirmed 03/28/17] Calcium [Oyster-Enrique 500] 500 mg PO DAILY 03/28/17 [History Confirmed 03/28/17] Cholecalciferol TAB* [Vitamin D TAB*] 1,000 unit PO QPM 03/28/17 [History Confirmed 03/28/17] Cholecalciferol TAB* [Vitamin D TAB*] 2,000 units PO DAILY 03/28/17 [History Confirmed 03/28/17] Gabapentin CAP(*) [Neurontin 100 mg CAP(*)] 200 mg PO BID 03/28/17 [History Confirmed 03/28/17] Ibuprofen TAB* [Advil TAB*] 200 mg PO Q4HR PRN 03/28/17 [History Confirmed 03/28] Isosorbide Mononitrate ER TAB* [Imdur ER TAB*] 60 mg PO DAILY 03/28/17 [History Confirmed 03/28/17] Magnesium Hydroxide LIQ* [Milk of Magnesia LIQ*] 30 ml PO BEDTIME PRN 03/28/17 [ History Confirmed 03/28/17] Nutritional Supplements [Arginaid] 1 leidy PO BID 03/28/17 [History Confirmed 12/14] Nystatin CREAM* [Nystatin Cream*] 1 applic TOPICAL BID PRN 03/28/17 [History Confirmed 03/28/17] Pediatric Multiple Vitamin W/ [Zoo Friends/Extra C] 1 chw PO DAILY 03/28/17 [ History Confirmed 03/28/17] Probiotic Product [Probiotic Daily] 1 cap PO DAILY 03/28/17 [History Confirmed 03/28/17] Sodium Phosphate ADULT ENEMA* [Fleet Enema*] 1 enema MT QAM PRN 03/28/17 [ History Confirmed 03/28/17] Witch Dori PAD* [Tucks*] 1 applic TOPICAL Q4HR PRN 03/28/17 [History Confirmed 03/28/17] Zinc [Chelated Zinc] 50 mg PO EVERY OTHER DAY 03/28/17 [History Confirmed ] PMH/Surg Hx/FS Hx/Imm Hx Endocrine/Hematology History: Reports: Hx Diabetes Denies: Hx Systemic Lupus Erythematosus Cardiovascular History: Reports: Hx Hypertension Denies: Hx Congestive Heart Failure History: Reports: Hx Renal Disease Denies: Hx Dialysis Musculoskeletal History: Denies: Hx Rheumatoid Arthritis - Cancer History Hx Chemotherapy: No - Surgical History Surgery Procedure, Year, and Place: Pacemaker/defibrillator Dec 2013, also 4 stents placed Infectious Disease History: No Infectious Disease History: Denies: Traveled Outside the [place] in Last 30 Days - Family History Known Family History: Positive: Cardiac Disease, Hypertension, Diabetes - Social History Alcohol Use: None Substance Use Type: Reports: None Smoking Status (MU): Former Smoker Review of Systems Constitutional: Negative Eyes: Negative ENT: Negative Cardiovascular: Negative Respiratory: Negative Positive: Vomiting, Diarrhea Genitourinary: Negative Positive: Myalgia - since resolved Skin: Negative Neurological: Negative Psychological: Normal All Other Systems Reviewed And Are Negative: Yes Physical Exam - Summary Physical Exam Summary: The patient has a drowsy appearance. Triage Information Reviewed: Yes Vital Signs On Initial Exam: Initial Vitals Temp Pulse Resp BP Pulse Ox 98.0 F 80 16 84/59 95 03/28/17 14:30 03/28/17 14:30 03/28/17 14:30 03/28/17 14:30 03/28/17 14:30 Vital Signs Reviewed: Yes Appearance: Positive: No Pain Distress Skin: Positive: Warm, Dry Head/Face: Positive: Other - Normocephalic; Atraumatic Eyes: Positive: Conjunctiva Clear ENT: Positive: Normal ENT inspection Dental: Negative: Cervical Lymphadenopathy Neck: Positive: No Lymphadenopathy, Other: - Full ROM; No JVD Respiratory/Lung Sounds: Positive: Rales - crackles left lower lung base, Other - Normal Effort; No respiratory distress. Negative: Rhonchi, Stridor, Tracheal Deviation, Wheezes Cardiovascular: Positive: RRR, Other - Rhythm regular, rate normal, Heart sounds normal; Intact distal pulses; The pedal pulses are 2+ and symmetric. Radial pulses are 2+ and symmetric. Negative: Murmur Abdomen Description: Positive: Nontender, Soft, Other: - No rebound; URINE APPEARS CLOUDY IN THE DOS SANTOS CATHETER. Negative: Distended, Guarding Bowel Sounds: Positive: Present Musculoskeletal: Negative: Edema Left, Edema Right Neurological: Positive: Other - The patient is orientated, but answer some questions incorrectly. The patient believes that he did not receive hyperbaric treatment today, but Dr. Pascual states he did. - [place] Coma Scale Coma Scale Total: 15 Diagnostics - Vital Signs Vital Signs Temp Pulse Resp BP Pulse Ox 03/28/17 15:06 93 03/28/17 15:02 72 18 91 03/28/17 15:00 109/57 03/28/17 14:55 98.3 F 70 20 109/57 91 03/28/17 14:30 98.0 F 80 16 84/59 95 - Laboratory Lab Results: Lab Results 03/28/17 03/28/17 Range/Units 15:13 15:13 WBC 11.6 H (3.5-10.8) 10^3/ul RBC 3.64 L (4.0-5.4) 10^6/ul Hgb 10.1 L (14.0-18.0) g/dl Hct 31 L (42-52) % MCV 85 (80-94) fL MCH 28 (27-31) pg MCHC 33 (31-36) g/dl RDW 17 H (10.5-15) % Plt Count 232 (150-450) 10^3/ul MPV 7 L (7.4-10.4) um3 Neut % (Auto) 77.9 (38-83) % Lymph % (Auto) 7.5 L (25-47) % [place] % (Auto) 9.8 H (1-9) % Eos % (Auto) 4.1 (0-6) % Baso % (Auto) 0.7 (0-2) % Absolute Neuts (auto) 9.0 H (1.5-7.7) 10^3/ul Absolute Lymphs (auto) 0.9 L (1.0-4.8) 10^3/ul Absolute Monos (auto) 1.1 H (0-0.8) 10^3/ul Absolute Eos (auto) 0.5 (0-0.6) 10^3/ul Absolute Basos (auto) 0.1 (0-0.2) 10^3/ul Absolute Nucleated RBC 0 10^3/ul Nucleated RBC % 0 INR (Anticoag Therapy) 1.33 H (0.89-1.11) Result Diagrams: 03/29/17 05:09 03/30/17 05:37 Lab Statement: Any lab studies that have been ordered have been reviewed, and results considered in the medical decision making process. - Radiology CXR Xray Interpretation: No Acute Changes - IMPRESSION: NO EVIDENCE FOR ACUTE FINDING. Radiology Interpretation Completed By: Radiologist Back Pain Course/Dx - Course Assessment/Plan: An 81 y/o male presents to the ED with lower back pain that lasted for a couple of hours and has since resolved. The pain was rated 10/10 in severity. Associated symptoms include vomiting and diarrhea - since 2 days ago. The patient denies abdominal pain, fever, diaphoresis, chills, urinary symptoms, dizziness, lightheadedness, and chest pain. Hx of UTI and kidney infections. He arrives from the wound clinic, where he received hyperbaric treatment for ulcer on both feet. Labs were reviewed. CXR shows no evidence for acute finding. In the ED course, the patient was given IV fluids, and IV Cipro. Discussed the case with Dr. Edwards who will admit the patient into his services. - Diagnoses Provider Diagnoses: UTI (urinary tract infection) Discharge - Discharge Plan Condition: Stable Disposition: ADMITTED TO [facility] The documentation as recorded by the Kay olguin Matthew accurately reflects the service I personally performed and the decisions made by me, Sixto Rousseau MD.
== END 2017-03-30 13:30 | DRG 872 ==
LOC: ED 14:19 → MED 17:26
PROVIDERS: ADMIT Internal Medicine; ATTEND Hospitalist
DX: A41.01 Sepsis due to Methicillin susceptible Staphylococcus aureus (principal); N17.9 Acute kidney failure, unspecified; E11.22 Type 2 diabetes mellitus with diabetic chronic kidney disease; N39.0 Urinary tract infection, site not specified; I13.0 Hypertensive heart and chronic kidney disease with heart failure and stage 1 through stage 4 chronic kidney disease, or unspecified chronic kidney disease; I50.9 Heart failure, unspecified; I48.0 Paroxysmal atrial fibrillation; E11.42 Type 2 diabetes mellitus with diabetic polyneuropathy; E86.1 Hypovolemia; E11.621 Type 2 diabetes mellitus with foot ulcer; E87.1 Hypo-osmolality and hyponatremia; L97.429 Non-pressure chronic ulcer of left heel and midfoot with unspecified severity; L97.419 Non-pressure chronic ulcer of right heel and midfoot with unspecified severity; L97.229 Non-pressure chronic ulcer of left calf with unspecified severity; L97.219 Non-pressure chronic ulcer of right calf with unspecified severity; I25.10 Atherosclerotic heart disease of native coronary artery without angina pectoris; N18.9 Chronic kidney disease, unspecified; E87.5 Hyperkalemia; G47.30 Sleep apnea, unspecified; E11.622 Type 2 diabetes mellitus with other skin ulcer; L98.419 Non-pressure chronic ulcer of buttock with unspecified severity; Z66 Do not resuscitate; Z95.810 Presence of automatic (implantable) cardiac defibrillator; Z79.1 Long term (current) use of non-steroidal anti-inflammatories (NSAID); Z79.82 Long term (current) use of aspirin; Z79.4 Long term (current) use of insulin; Z79.899 Other long term (current) drug therapy; Z87.891 Personal history of nicotine dependence
CPT/HCPCS: 36415; 71010; 80048; 80053; 80202; 81003; 81015; 83036; 83605; 83735; 84484; 85025; 85610; 87077; 87086; 87186; 87641; A9270-GY; J0696; J0744; J1644; J3370